=== PATIENT | female | born 2000 | race Caucasian/White ===

== ENCOUNTER 2020-04-20 22:29 | Emergency (ER) | payer MEDICAID, SELFPAY ==
[~2020-04-20] VITALS: Ht 162.6 cm; Wt 65.8 kg
[2020-04-20 22:35] VITALS: BP_SYST 137
[2020-04-20] MEDS ORDERED: NACL 0.9% 1,000 ML IV ONE (23:15)
[2020-04-20] MEDS ORDERED: IBUPROFEN 600 MG TABLET PO ONE (23:15)
[2020-04-20] MEDS ORDERED: DEXAMETHASONE SOD PHOSPHATE 10 MG/ML VIAL IVP ONE (23:15)
[2020-04-20] MEDS ORDERED: KETOROLAC TROMETHAMINE 30 MG VIAL ONE (23:38)
[2020-04-21] MEDS ORDERED: NACL 0.9% 1,000 ML IV ONE
[2020-04-21] MEDS ORDERED: CLINDAMYCIN 900 mg/50mL D5W 50 ML IV ONE ×2 (00:15)
[2020-04-21] MEDS ORDERED: KETOROLAC TROMETHAMINE 30 MG VIAL IVP ONE (00:15)
[2020-04-21] MEDS ORDERED: MORPHINE 4 MG/ML INJ. SYRINGE ONE (00:26)
[2020-04-21] MEDS ORDERED: MORPHINE 4 MG/ML INJ. SYRINGE IVP ONE (00:30)
[2020-04-21 00:33] LABS: BASOPHILS % (AUTO) 0.2 % (0.0-2.0); EOSINOPHILS % (AUTO) 0.3 % (0.0-4.0); HEMATOCRIT 38.5 % (36-48); HEMOGLOBIN 12.9 g/dL (12.0-16.0); LYMPHOCYTES # (AUTO) 0.7 K/uL (1.0-5.5); LYMPHOCYTES % (AUTO) 4.5 % (20.5-51.5); MEAN CORPUSCULAR HEMOGLOBIN 30 pg (27-31); MEAN CORPUSCULAR HGB CONC 33 % (32-36); MEAN CORPUSCULAR VOLUME 90 fL (79.0-98.0); MONOCYTES # (AUTO) 1.2 K/uL (0.0-1.0); NEUTROPHILS # (AUTO) 13.3 K/uL (1.8-7.7); PLATELET COUNT (AUTO) 176 K/uL (130-430); RED BLOOD CELL COUNT(AUTO) 4.26 MIL/uL (4.2-6.2); RED CELL DISTRIBUTION WIDTH 12.7 % (9.0-15.0); WHITE BLOOD COUNT (AUTO) 15.2 K/uL (4.8-10.8)
[2020-04-21 00:40] LABS: CALCIUM 8.6 mg/dL (8.4-11.0); CREATININE 0.92 mg/dL (0.55-1.30); POTASSIUM 4.2 mmol/L (3.5-5.1)
[2020-04-21 00:46] LABS: ALBUMIN 3.7 g/dL (3.4-4.8); TOTAL BILIRUBIN 0.6 mg/dL (0.0-1.0)
[2020-04-21 00:51] LABS: MONOTEST NEGATIVE (NEGATIVE)
[2020-04-21 01:07] LABS: STREPTOCOCCUS A SCREEN (RAPID) NEGATIVE (NEGATIVE)
[2020-04-21] MEDS ORDERED: MORPHINE 2 MG/ML INJ. SYRINGE ONE ×2 (02:51→05:42)
[2020-04-21] MEDS ORDERED: MORPHINE 2 MG/ML INJ. SYRINGE IVP ONE ×2 (06:00)
[2020-04-21 06:40] VITALS: BP_SYST 137
== END 2020-04-21 06:39 | disposition home or self-care (01) ==
LOC: SED 22:29
DX: J36 Peritonsillar abscess (principal); Z88.1 Allergy status to other antibiotic agents; Z20.822 Contact with and (suspected) exposure to COVID-19
CPT/HCPCS: 36415; 70491; 76376; 80053; 84703; 85025; 86308; 86403; 87081; 87426; 96361; 96365; 96375 ×2; 96376; 99285; J1100; J1885; J2270 ×2; J3490; J7030 ×2; Q9967